=== PATIENT | male | born 2000 | race Caucasian/White ===

== ENCOUNTER → 2021-07-04 | Day surgery (SDC) | payer OTHER ==
[~2021-07-04] VITALS: Ht 182.9 cm; Wt 75.7 kg
[~2021-07-04] MED LIST: ENDOCET 7.5-321 EACH PO; ESCITALOPRAM OX20 MG PO
[2021-07-04 07:38] LABS: BUN/CREATININE RATIO 18 (0-10)
== END | disposition home or self-care (01) ==
LOC: OR 06:55
PROVIDERS: Orthopaedic Surgery
DX: S42.031A Displaced fracture of lateral end of right clavicle, initial encounter for closed fracture (principal); S49.91XA Unspecified injury of right shoulder and upper arm, initial encounter; S80.912A Unspecified superficial injury of left knee, initial encounter; F17.290 Nicotine dependence, other tobacco product, uncomplicated; Z79.899 Other long term (current) drug therapy; Z20.822 Contact with and (suspected) exposure to COVID-19; V86.96XA Unspecified occupant of dirt bike or motor/cross bike injured in nontraffic accident, initial encounter
CPT/HCPCS: 71045; 73000; 76000; 80048; C1713; J0171; J0690; J1100; J1170; J1885; J2001; J2250; J2405; J2704; J2795; J3010; J7120; U0002

== ENCOUNTER → 2021-07-19 | Outpatient (CLI) | payer OTHER | LOC: KOH-I 09:45 | DX: S83.242A Other tear of medial meniscus, current injury, left knee, initial encounter (principal) | CPT/HCPCS: 73721 ==